=== PATIENT | female | born 1965 | race Caucasian/White ===

== ENCOUNTER 2018-07-13 09:13 | Outpatient (CLI) | payer OTHER ==
--- NOTE | 2018-07-13 16:26 | MMO ---
Bilateral MAMMO Bilat Screen DDI. CLINICAL HISTORY: Patient is 52 years old and is seen for screening. The patient has the following family history of breast cancer: mother. The patient has no personal history of cancer. VIEWS: The views performed were: bilateral craniocaudal and bilateral mediolateral oblique. FILMS COMPARED: The present examination has been compared to a prior imaging study performed at [facility] on 06/01/2016. This study has been interpreted with the assistance of computer-aided detection. MAMMOGRAM FINDINGS: There are scattered fibroglandular densities. There are no suspicious masses, suspicious calcifications, or new areas of architectural distortion. IMPRESSION: THERE IS NO MAMMOGRAPHIC EVIDENCE OF MALIGNANCY. A ROUTINE FOLLOW-UP MAMMOGRAM IN 1 YEAR IS RECOMMENDED. ACR BI-RADS Category 1 - Negative MAMMOGRAPHY NOTE: 1. A negative mammogram report should not delay a biopsy if a dominant of clinically suspicious mass is present. 2. Approximately 10% to 15% of breast cancers are not detected by mammography. 3. Adenosis and dense breasts may obscure an underlying neoplasm.
== END 2018-07-13 09:14 | disposition home or self-care (01) ==
LOC: SCSMAMMO 09:13
PROVIDERS: ATTEND Family Medicine
DX: Z12.31 Encounter for screening mammogram for malignant neoplasm of breast (principal); Z80.3 Family history of malignant neoplasm of breast
CPT/HCPCS: 77067

== ENCOUNTER 2018-07-19 09:39 | Emergency (ER) | payer OTHER | END 2018-07-19 10:35 | LOC: ERS 09:39 | DX: J06.9 Acute upper respiratory infection, unspecified (principal); I48.91 Unspecified atrial fibrillation; Z79.899 Other long term (current) drug therapy; Z79.82 Long term (current) use of aspirin | CPT/HCPCS: 87804; 99283 ==

== ENCOUNTER 2019-06-15 08:41 | Outpatient (CLI) | payer OTHER ==
--- NOTE | 2019-06-15 09:09 | ULT ---
EXAM: Abdominal ultrasound PROVIDED CLINICAL HISTORY: Hepatitis C COMPARISON: None FINDINGS: Visualized portions of the pancreas, IVC and aorta appear normal. Liver demonstrates no mass or intrahepatic biliary ductal dilatation. Common duct is nondilated. The gallbladder is not visualized, compatible with the provided clinical history of prior cholecystec alan. Kidneys demonstrate no hydronephrosis or solid mass. Spleen is upper limits normal in size and demonstrates no focal abnormality. IMPRESSION: Unremarkable abdominal ultrasound.
== END 2019-06-15 08:42 | disposition home or self-care (01) ==
LOC: BICULT 08:41
PROVIDERS: ATTEND Family Medicine
DX: B19.20 Unspecified viral hepatitis C without hepatic coma (principal)
CPT/HCPCS: 93975